=== PATIENT | female | born 1985 | race Caucasian/White ===

== ENCOUNTER 2018-12-14 09:59 | Day surgery (SDC) | payer MEDICAID ==
[2018-12-12 15:14] LABS: BASOPHILS # (AUTO) 0.1 X10'3 (0-0.2); BASOPHILS % (AUTO) 1.2 % (0-1); EOSINOPHILS # (AUTO) 0.2 X10'3 (0-0.9); EOSINOPHILS % (AUTO) 1.7 % (0-6); LYMPHOCYTES # (AUTO) 2.6 X10'3 (1.1-4.8); LYMPHOCYTES % (AUTO) 24.2 % (21-51); MEAN CORPUSCULAR HEMOGLOBIN 29.4 PG (27.0-31.0); MEAN CORPUSCULAR HGB CONC 33.3 % (33.0-36.5); MEAN CORPUSCULAR VOLUME 88.4 FL (78-98); MEAN PLATELET VOLUME 8.6 FL (7.4-10.4); MONOCYTES # (AUTO) 0.6 X10'3 (0-0.9); MONOCYTES % (AUTO) 5.6 % (2-12); NEUTROPHILS # (AUTO) 7.3 X10'3 (1.8-7.7); NEUTROPHILS % (AUTO) 67.3 % (42-75); PRE OP HEMATOCRIT 39.4 % (35.0-45.0); PRE OP HEMOGLOBIN 13.1 g/dL (12.0-16.0); PRE OP PLATELET COUNT 240 X10'3 (140-440); RED BLOOD COUNT 4.46 X10'6 (4.20-5.60); RED CELL DISTRIBUTION WIDTH 13.4 % (11.5-14.5)
[2018-12-12 15:31] LABS: ALBUMIN 3.5 G/DL (3.4-5.0); ALBUMIN/GLOBULIN RATIO 0.9 (1.1-1.5); ALKALINE PHOSPHATASE 81 IU/L (46-116); BLOOD UREA NITROGEN 11 MG/DL (7-18); BUN/CREATININE RATIO 14.1 (6.6-38.0); CHLORIDE 104 MMOL/L (99-107); CREATININE 0.78 MG/DL (0.40-0.90); PRE OP ALT 31 U/L (30-65); PRE OP ANION GAP 10 (8-16); PRE OP AST 18 U/L (10-37); PRE OP BILIRUB, TOTAL 0.2 MG/DL (0.0-1.0); PRE OP GLUCOSE 90 MG/DL (70-104); PRE OP POTASSIUM 4.4 MMOL/L (3.4-5.1); PRE OP SODIUM 139 MMOL/L (135-145); TOTAL CARBON DIOXIDE 25.4 MMOL/L (24-32); TOTAL PROTEIN 7.5 G/DL (6.4-8.2); eGFR 84 ML/MIN
[2018-12-12 16:07] LABS: HCG SERUM QL NEGATIVE
[2018-12-14] VITALS (12 sets, daily range): BP systolic 128–141; BP diastolic 70–94
[~2018-12-14] VITALS: Ht 170.2 cm; Wt 130.2 kg
[~2018-12-14 09:59] MED LIST: NO HOME MEDS; famotidine 20mg tablet PO ONE; ringers solution, lacted 1,000 ML IV SCH
[2018-12-14] MEDS ORDERED: BUPIVAcaine/PF 2.5mg/ml (0.25%) 10ml vial ONE (10:52)
[2018-12-14] MEDS ORDERED: albuterol 2.5 MG/3 ML nebule NEB ONE (10:55)
[2018-12-14] MEDS ORDERED: ringers solution, lacted 1,000 ML IV SCH (11:45)
[2018-12-14] MEDS ORDERED: morphine 4 MG/ML inj SYRINge IV PRN ×2 (11:45)
[2018-12-14] MEDS ORDERED: ondansetron/PF 4mg/2ml inj IV PRN (11:45)
[2018-12-14] MEDS ORDERED: proCHLORperazine 10 MG/2 ml inj IV PRN (11:45)
[2018-12-14] MEDS ORDERED: meperidine/PF 25mg/ml syringe IV PRN ×3 (11:45)
[2018-12-14] MEDS ORDERED: sevoflurane 250ml liquid IH ONE (12:22)
[2018-12-14] MEDS ORDERED: midazolam 2 mg/2 ml injection ONE (12:25)
[2018-12-14] MEDS ORDERED: fentaNYL/PF 50MCG/1 ML 2ML syringe ONE ×2 (12:25→12:48)
[2018-12-14] MEDS ORDERED: LIDOcaine 2% (20mg/ml) 5ml vial ONE (12:40)
[2018-12-14] MEDS ORDERED: propofol inj 20 ML IV ONE (12:40)
[2018-12-14] MEDS ORDERED: glycopyrrolate 0.2mg/ml inj ONE (12:40)
[2018-12-14] MEDS ORDERED: succinylcholine 20mg/ml inj IV ONE (12:40)
[2018-12-14] MEDS ORDERED: dexamethasone sod phosphate 4mg/ml inj. ONE (12:40)
[2018-12-14] MEDS ORDERED: ketorolac trometh. 30mg/ml inj. ONE (12:40)
[2018-12-14] MEDS ORDERED: neostigmine methylsulfate 1 MG/ML 10ml vial ONE (12:40)
[2018-12-14] MEDS ORDERED: rocuronium 10mg/ml inj IV ONE (12:40)
--- NOTE | 2018-12-14 13:12 | NUR ---
Received from OR via [facility], accompanied by Anesthesiologist DR TRUJILLO and report given by Anesthesiolgist. PT AWAKE, DENIES PAIN, 2 LAP SITES W/BANDAIDS CDI. Addendum: 12/14/18 at 1339 by Sonali Argueta RN Amended: Links added.
[2018-12-14] MEDS ORDERED: HYDROcodone/acetaminophen 5mg/325mg tablet PO ONE (14:40)
== END 2018-12-14 14:52 | disposition home or self-care (01) ==
LOC: PAS 09:59
PROVIDERS: ATTEND Obstetrics & Gynecology
DX: Z30.2 Encounter for sterilization (principal); E66.9 Obesity, unspecified; Z87.891 Personal history of nicotine dependence; Z68.42 Body mass index [BMI] 45.0-49.9, adult; Z90.49 Acquired absence of other specified parts of digestive tract; Z79.899 Other long term (current) drug therapy; Z98.890 Other specified postprocedural states; Z84.89 Family history of other specified conditions
CPT/HCPCS: 36415; 58670; 80053; 82948; 84703; 85025; 86885; 86900; 86901; 94640; 94760; J0330; J1100; J1885; J2001; J2175; J2250; J2704; J2710; J3010; J3490; J7120; A6250

== ENCOUNTER 2020-09-23 14:08 | Emergency (ER) | payer MEDICAID, OTHER ==
[~2020-09-23] VITALS: Ht 170.2 cm; Wt 136.0 kg
[~2020-09-23 14:08] MED LIST changes: -famotidine 20mg tablet PO ONE; -ringers solution, lacted 1,000 ML IV SCH
[2020-09-23 14:13] VITALS: BP 167/98
== END 2020-09-23 15:13 | disposition home or self-care (01) ==
LOC: ER 14:09
DX: S60.221A Contusion of right hand, initial encounter (principal); W01.0XXA Fall on same level from slipping, tripping and stumbling without subsequent striking against object, initial encounter; Y93.89 Activity, other specified; Y92.89 Other specified places as the place of occurrence of the external cause; Y99.9 Unspecified external cause status
CPT/HCPCS: 73130; 99283